=== PATIENT | male | born 1960 | race African-American/Black ===

== ENCOUNTER 2016-11-04 14:18 | Inpatient (IN) | payer OTHER ==
--- NOTE | 2016-11-04 19:23 | HP ---
COWS - Scale Resting Pulse: 0= [place] 80 or Below Sweatin= Chills/Flushing Restless Observation: 3= Extraneous Movement Pupil Size: 0= Normal to Room Light Bone or Joint Aches: 2= Severe Diffuse Aches Runny Nose/ Eye Tearin= Runny Nose/Eyes GI Upset > 30mins: 3= Vomiting/Diarrhea Tremor Observation: 2= Slight Tremor Visible Yawning Observation: 0= None Anxiety or Irritability: 2=Irritable/Anxious Goose Flesh Skin: 0=Smooth Skin COWS Score: 15 Admission ROS S - HPI Chief Complaint: withdrawal sx Allergies/Adverse Reactions: Allergies Allergy/AdvReac Type Severity Reaction Status Date / Time chlordiazepoxide HCl Allergy Severe Vomiting Verified 11/04/16 18:41 [From Librium] History of Present Illness: 56 years old male with long history opiate nicotine dependence has positive ppd denies mental illness is admitted to detox Exam Limitations: No Limitations - Ebola screening Have you traveled outside of the country in the last 21 days: No Have you had contact with anyone from an Ebola affected area: No Have you been sick,other than usual withdrawal symptoms: No Do you have a fever: No - Review of Systems Constitutional: Changes in sleep, Weight Stable EENT: reports: Blurred Vision (eye glasses) Respiratory: reports: No Symptoms reported Cardiac: reports: No Symptoms Reported GI: reports: Nausea, Poor Fluid Intake, Vomiting, Indigestion, Abdominal cramping : reports: No Symptoms Reported Musculoskeletal: reports: Back Pain, Joint Pain, Muscle Pain, Neck Pain Integumentary: reports: No Symptoms Reported Neuro: reports: Tremors Endocrine: reports: No Symptoms Reported Hematology: reports: No Symptoms Reported Psychiatric: reports: Judgement Intact, Mood/Affect Appropiate, Orientated x3 Other Systems: Reviewed and Negative Patient History - Patient Medical History Hx Anemia: No Hx Asthma: No Hx Chronic Obstructive Pulmonary Disease (COPD): No Hx Cancer: No Hx Cardiac Disorders: No Hx Congestive Heart Failure: No Hx Hypertension: No Hx Hypercholesterolemia: No Hx Pacemaker: No HX Cerebrovascular Accident: No Hx Seizures: No Hx Dementia: No Hx Diabetes: Yes Hx Gastrointestinal Disorders: No Hx Liver Disease: No Hx Genitourinary Disorders: No Hx Sexually Transmitted Disorders: No Hx Renal Disease (ESRD): No Hx Thyroid Disease: No Hx Human Immunodeficiency Virus (HIV): No Hx Hepatitis C: No Hx Depression: No Hx Suicide Attempt: No Hx Bipolar Disorder: No Hx Schizophrenia: No - Patient Surgical History Past Surgical History: No Hx Neurologic Surgery: No Hx Cataract Extraction: No Hx Cardiac Surgery: No Hx Lung Surgery: No Hx Breast Surgery: No Hx Breast Biopsy: No Hx Abdominal Surgery: No Hx Appendectomy: No Hx Cholecystectomy: No Hx Genitourinary Surgery: No Hx Orthopedic Surgery: No Anesthesia Reaction: No - PPD History Previous Implant?: Yes Documented Results: Positive w/o proof Implanted On Prior R Admission?: No PPD to be Administered?: No - Smoking Cessation Smoking history: Current every day smoker Have you smoked in the past 12 months: Yes Aproximately how many cigarettes per day: 30 Cigars Per Day: 0 Hx Chewing Tobacco Use: No Initiated information on smoking cessation: Yes 'Breaking Loose' booklet given: 11/04/16 - Substance & Tx. History Hx Alcohol Use: No Hx Substance Use: Yes Substance Use Type: Heroin Hx Substance Use Treatment: Yes (2009) - Substances Abused Heroin Route: Inhalation Frequency: Daily Amount used: 15 bags Age of first use: 28 Date of Last Use: 11/04/16 Family Disease History - Family Disease History Family Disease History: Diabetes: Mother (), Heart Disease: Sister, Other: Father (), Mother, Brother (no brother) Admission Physical Exam S - Vital Signs Vital Signs: Vital Signs - 24 hr 11/04/16 16:47 Temperature 98.3 F Pulse Rate 80 Respiratory 18 Rate Blood Pressure 111/67 - Physical General Appearance: Yes: Appropriately Dressed, Mild Distress, Obese, Tremorous , Irritable, Sweating, Anxious HEENTM: Yes: Hearing grossly Normal, Normal ENT Inspection, Normocephalic, Normal Voice Respiratory: Yes: Chest Non-Tender, Lungs Clear, Normal Breath Sounds, No Respiratory Distress, No Accessory Muscle Use Neck: Yes: Supple, Trachea in good position Breast: Yes: Breasts Symetrical Cardiology: Yes: Regular Rhythm, Regular Rate, S1, S2 Abdominal: Yes: Non Tender, Soft, Increased Bowel Sounds Genitourinary: Yes: Within Normal Limits Back: Yes: Normal Inspection Musculoskeletal: Yes: full range of Motion, Gait Steady, Back pain, Muscle Pain Extremities: Yes: Normal Inspection, Normal Range of Motion, Non-Tender, Tremors Neurological: Yes: Fully Oriented, Alert, Motor Strength 5/5, Normal Mood/Affect , Normal Response Integumentary: Yes: Warm Lymphatic: Yes: Within Normal Limits - Diagnostic (1) GERD (gastroesophageal reflux disease) Current Visit: Yes Status: Chronic Qualifiers: Esophagitis presence: without esophagitis Qualified Code(s): K21.9 - Gastro-esophageal reflux disease without esophagitis (2) Nicotine dependence Current Visit: Yes Status: Acute Qualifiers: Nicotine product type: cigarettes Substance use status: in withdrawal Qualified Code(s): F17.213 - Nicotine dependence, cigarettes, with withdrawal (3) Positive PPD, treated Current Visit: Yes Status: Resolved (4) Opioid dependence with withdrawal Current Visit: Yes Status: Acute Cleared for Admission S - Detox or Rehab [facility] Level of Care: Medically Managed Detox Regimen/Protocol: Methadone [facility] Breath Alcohol Content Breath Alcohol Content: 0 Vital Signs - Height Height: 6 ft 2 in - Weight Weight: 232 lb Weight Measurement Method: Standing Scale Body Mass Index (BMI): 29.7 - Bowel Function Bowel Movement: Yes Urine Drug Screen - Results Drug Screen Negative: No Urine Drug Screen Results: OPI-Opiates
[2016-11-04] MEDS ORDERED: diazePAM 5 MG TABLET PO PRN (19:56)
[2016-11-04] MEDS ORDERED: MAGNESIUM CITRATE 300 ML BOTTLE PO PRN (19:56)
[2016-11-04] MEDS ORDERED: METHADONE HCL 10 MG TABLET (FOR DETOX USE ONLY) PO ONE ×2 (19:56→23:00)
[2016-11-04] MEDS ORDERED: MENTHOL/PHENOL 1 EACH UD MM PRN (19:56)
[2016-11-04] MEDS ORDERED: NICOTINE POLACRILEX 4 MG GUM BUC PRN (19:56)
[2016-11-04] MEDS ORDERED: guaiFENesin/D-METHORPHAN HB 10 ML UNIT-DOSE CUPS PO PRN (19:56)
[2016-11-04] MEDS ORDERED: ACETAMINOPHEN 325 MG TABLET (FP) PO PRN (19:56)
[2016-11-04] MEDS ORDERED: MAG HYDROX/AL HYDROX/SIMETH 30 ML UNIT-DOSE CUP PO PRN (19:56)
[2016-11-04] MEDS ORDERED: diphenhydrAMINE HCL 50 MG CAPSULE PO PRN (19:56)
[2016-11-04] MEDS ORDERED: MAGNESIUM HYDROX 2400MG/30ML ORAL SUSPENSION 30 ML CUP PO PRN (19:56)
[2016-11-04] MEDS ORDERED: LOPERAMIDE HCL 2 MG CAPSULE PO PRN (19:56)
[2016-11-04] MEDS ORDERED: P-EPHED 60MG/TRIPROLIDI 2.5MG TABLET PO PRN (19:56)
[2016-11-04 19:57] VITALS: BMI 29.7
[2016-11-04] MEDS: THIAMINE HCL 100 MG TABLET (FP) PO SCH (21:25)
[2016-11-04] MEDS: RANITIDINE HCL 150 MG TABLET (FP) PO SCH (21:25)
[2016-11-04 21:56] LABS: URINE APPEARANCE CLEAR; URINE BILIRUBIN 1+ (NEGATIVE); URINE BLOOD NEGATIVE (NEGATIVE); URINE COLOR YELLOW; URINE GLUCOSE (UA) NEGATIVE (NEGATIVE); URINE KETONE NEGATIVE (NEGATIVE); URINE LEUK ESTERASE NEGATIVE (NEGATIVE); URINE NITRITE NEGATIVE (NEGATIVE)
[2016-11-04 22:02] LABS: URINE PROTEIN 1+ (NEGATIVE)
[2016-11-04 22:21] LABS: URINE MUCUS MANY; URINE RBC 3 /hpf (0-3); URINE WBC 1 /hpf (3-5)
--- NOTE | 2016-11-05 09:49 | EKG ---
Test Reason : Blood Pressure : / mmHG Vent. Rate : 049 BPM Atrial Rate : 049 BPM P-R Int : 224 ms QRS Dur : 100 ms QT Int : 440 ms P-R-T Axes : 041 053 066 degrees QTc Int : 397 ms SINUS BRADYCARDIA WITH 1ST DEGREE A-V BLOCK OTHERWISE NORMAL ECG Confirmed by MD JANA, GILMER ([id number]) on 11/05/2016 9:48:49 AM Referred By: Confirmed By:GILMER BATES MD
--- NOTE | 2016-11-05 09:49 | EKG ---
Test Reason : Blood Pressure : / mmHG Vent. Rate : 049 BPM Atrial Rate : 049 BPM P-R Int : 190 ms QRS Dur : 102 ms QT Int : 410 ms P-R-T Axes : 049 062 071 degrees QTc Int : 370 ms SINUS BRADYCARDIA NONSPECIFIC T WAVE ABNORMALITY ABNORMAL ECG NO PREVIOUS ECGS AVAILABLE Confirmed by MD JANA, GILMER ([id number]) on 11/05/2016 9:49:14 AM Referred By: Confirmed By:GILMER BATES MD
[2016-11-05] MEDS ORDERED: METHADONE HCL 10 MG TABLET (FOR DETOX USE ONLY) PO ONE (10:00)
[2016-11-05 10:25] LABS: MCH 30.5 pg (25.7-33.7); MCHC 33.6 g/dl (32.0-35.9); MEAN CELL VOLUME 90.7 fl (80-96); MEAN PLT VOLUME 11.6 fl (7.5-11.1); PLATELET COUNT 133 K/MM3 (134-434); RDW 13.2 % (11.9-15.9); WHITE BLOOD COUNT 6.1 K/mm3 (4.0-10.0)
[2016-11-05] MEDS: PRENATAL VITAMINS W/ FOLIC ACID TABLET (FP) PO SCH (10:43)
[2016-11-05] MEDS: RANITIDINE HCL 150 MG TABLET (FP) PO SCH ×2 (10:43→22:34)
[2016-11-05] MEDS: NICOTINE 21 MG/24 HOURS TOPICAL PATCH TD SCH (10:45)
[2016-11-05 11:22] LABS: ALBUMIN 3.4 g/dl (3.4-5.0); ANION GAP 6 (8-16); CALCIUM 8.9 mg/dL (8.5-10.1); CO2 28 mmol/L (21-32); GLUCOSE,RANDOM 100 mg/dL (74-106)
[2016-11-05 11:29] LABS: ALK PHOS 73 U/L (45-117); BILIRUBIN,TOTAL 0.5 mg/dL (0.2-1.0); CREATININE 0.8 mg/dL (0.7-1.3); SGOT/AST 11 U/L (15-37); SGPT/ALT 18 U/L (12-78)
--- NOTE | 2016-11-05 13:53 | PN ---
S CIWA - CIWA Score Nausea/Vomitin Muscle Tremors: 2 Anxiety: 4-Mod. Anxious/Guarded Agitation: 3 Paroxysmal Sweats: 3 Orientation: 0-Oriented Tacttile Disturbances: 2-Mild Itch/Numbness/Burn Auditory Disturbances: 0-None Visual Disturbances: 2-Mild Sensitivity Headache: 0-None Present CIWA-Ar Total Score: 19 S Progress Note (SOAP) Subjective: Stomach Cramping, Sweating, Anxious. Objective: PT. A & O X 3, OBSERVED AMBULATING ON UNIT. NO ACUTE DISTRESS. PT. DENIES CHEST PAIN. 11/05/16 13:51 Vital Signs Temperature 96.8 F L 11/05/16 09:41 Pulse Rate 98 H 11/05/16 09:41 Respiratory Rate 18 11/05/16 09:41 Blood Pressure 142/76 11/05/16 09:41 O2 Sat by Pulse Oximetry (%) Laboratory Tests 11/04/16 11/04/16 11/05/16 19:02 21:46 08:00 WBC 6.1 RBC 4.28 Hgb 13.0 Hct 38.8 MCV 90.7 MCH 30.5 MCHC 33.6 RDW 13.2 Plt Count 133 L MPV 11.6 H Sodium Potassium Chloride Carbon Dioxide Anion Gap BUN Creatinine Creat Clearance w eGFR POC Glucometer 92 Random Glucose Calcium Total Bilirubin AST ALT Alkaline Phosphatase Total Protein Albumin Urine Color Yellow Urine Appearance Clear Urine pH 6.0 Ur Specific [place] >= 1.030 H Urine Protein 1+ H Urine Glucose (UA) Negative Urine Ketones Negative Urine Blood Negative Urine Nitrite Negative Urine Bilirubin 1+ H Urine Urobilinogen 1.0 Urine RBC 3 Urine WBC 1 Ur Epithelial Cells Moderate Urine Mucus Many RPR Titer 11/05/16 11/05/16 08:00 08:00 WBC RBC Hgb Hct MCV MCH MCHC RDW Plt Count MPV Sodium 141 Potassium 4.1 Chloride 107 Carbon Dioxide 28 Anion Gap 6 L BUN 11 Creatinine 0.8 Creat Clearance w eGFR > 60 POC Glucometer Random Glucose 100 Calcium 8.9 Total Bilirubin 0.5 AST 11 L ALT 18 Alkaline Phosphatase 73 Total Protein 6.0 L Albumin 3.4 Urine Color Urine Appearance Urine pH Ur Specific [place] Urine Protein Urine Glucose (UA) Urine Ketones Urine Blood Urine Nitrite Urine Bilirubin Urine Urobilinogen Urine RBC Urine WBC Ur Epithelial Cells Urine Mucus RPR Titer Nonreactive LABS NOTED. Assessment: 11/05/16 13:52 WITHDRAWAL SYMPTOMS. Plan: CONTINUE DETOX. REPEAT UA FOR ADMISSION UA ABNORMALITIES. INCREASE DAILY PO FLUID INTAKE.
[2016-11-05] MEDS: THIAMINE HCL 100 MG TABLET (FP) PO SCH (22:34)
[2016-11-06] MEDS ORDERED: METHADONE HCL 5 MG TABLET (FOR DETOX USE ONLY) PO ONE (10:00)
[2016-11-06] MEDS: PRENATAL VITAMINS W/ FOLIC ACID TABLET (FP) PO SCH (10:06)
[2016-11-06] MEDS: RANITIDINE HCL 150 MG TABLET (FP) PO SCH ×2 (10:06→22:39)
[2016-11-06] MEDS: NICOTINE 21 MG/24 HOURS TOPICAL PATCH TD SCH (10:07)
--- NOTE | 2016-11-06 13:22 | PN ---
S COWS - Scale Resting Pulse: 1= [place] 81-100 Sweatin=Flushed/Facial Moisture Restless Observation: 3= Extraneous Movement Pupil Size: 1= Pupils >than Normal Bone or Joint Aches: 2= Severe Diffuse Aches Runny Nose/ Eye Tearin= Runny Nose/Eyes GI Upset > 30mins: 3= Vomiting/Diarrhea Tremor Observation of Outstretched Hands: 2= Slight Tremor Visible Yawning Observation: 0= None Anxiety or Irritability: 2=Irritable/Anxious Goose Flesh Skin: 0=Smooth Skin COWS Score: 18 S Progress Note (SOAP) Subjective: Nausea, chills, sweating, vomited x 1 Objective: 11/06/16 13:18 Last Vital Signs Temp Pulse Resp BP Pulse Ox 97.9 F 87 18 130/64 11/06/16 10:40 11/06/16 10:40 11/06/16 10:40 11/06/16 10:40 Laboratory Tests 11/04/16 11/04/16 11/05/16 19:02 21:46 08:00 WBC 6.1 RBC 4.28 Hgb 13.0 Hct 38.8 MCV 90.7 MCH 30.5 MCHC 33.6 RDW 13.2 Plt Count 133 L MPV 11.6 H Sodium Potassium Chloride Carbon Dioxide Anion Gap BUN Creatinine Creat Clearance w eGFR POC Glucometer 92 Random Glucose Calcium Total Bilirubin AST ALT Alkaline Phosphatase Total Protein Albumin Urine Color Yellow Urine Appearance Clear Urine pH 6.0 Ur Specific [place] >= 1.030 H Urine Protein 1+ H Urine Glucose (UA) Negative Urine Ketones Negative Urine Blood Negative Urine Nitrite Negative Urine Bilirubin 1+ H Urine Urobilinogen 1.0 Urine RBC 3 Urine WBC 1 Ur Epithelial Cells Moderate Urine Mucus Many RPR Titer 11/05/16 11/05/16 08:00 08:00 WBC RBC Hgb Hct MCV MCH MCHC RDW Plt Count MPV Sodium 141 Potassium 4.1 Chloride 107 Carbon Dioxide 28 Anion Gap 6 L BUN 11 Creatinine 0.8 Creat Clearance w eGFR > 60 POC Glucometer Random Glucose 100 Calcium 8.9 Total Bilirubin 0.5 AST 11 L ALT 18 Alkaline Phosphatase 73 Total Protein 6.0 L Albumin 3.4 Urine Color Urine Appearance Urine pH Ur Specific [place] Urine Protein Urine Glucose (UA) Urine Ketones Urine Blood Urine Nitrite Urine Bilirubin Urine Urobilinogen Urine RBC Urine WBC Ur Epithelial Cells Urine Mucus RPR Titer Nonreactive Labs noted: UA abnormal Assessment: 11/06/16 13:20 Withdrawal symptoms Noted with abnormal UA Plan: Continue detox Abnormal UA: encouraged to drink lots of water, repeat UA
[2016-11-06] MEDS: THIAMINE HCL 100 MG TABLET (FP) PO SCH (22:39)
--- NOTE | 2016-11-07 09:35 | PN ---
[facility] Progress Note (SOAP) Subjective: Sweating, interrupted sleep, restless Objective: 11/07/16 09:33 Vital Signs 11/07/16 11/07/16 11/07/16 03:21 06:08 06:09 Temperature 96.2 F L Pulse Rate 89 Respiratory 18 18 18 Rate Blood Pressure 122/71 11/07/16 09:03 Temperature 98.1 F Pulse Rate 63 Respiratory 18 Rate Blood Pressure 114/73 Laboratory Last Values WBC 6.1 K/mm3 (4.0-10.0) 11/05/16 08:00 RBC 4.28 M/mm3 (4.00-5.60) 11/05/16 08:00 Hgb 13.0 GM/dL (11.7-16.9) 11/05/16 08:00 Hct 38.8 % (35.4-49) 11/05/16 08:00 MCV 90.7 fl (80-96) 11/05/16 08:00 MCH 30.5 pg (25.7-33.7) 11/05/16 08:00 MCHC 33.6 g/dl (32.0-35.9) 11/05/16 08:00 RDW 13.2 % (11.9-15.9) 11/05/16 08:00 Plt Count 133 K/MM3 (134-434) L 11/05/16 08:00 MPV 11.6 fl (7.5-11.1) H 11/05/16 08:00 Sodium 141 mmol/L (136-145) 11/05/16 08:00 Potassium 4.1 mmol/L (3.5-5.1) 11/05/16 08:00 Chloride 107 mmol/L (98-107) 11/05/16 08:00 Carbon Dioxide 28 mmol/L (21-32) 11/05/16 08:00 Anion Gap 6 (8-16) L 11/05/16 08:00 BUN 11 mg/dL (7-18) 11/05/16 08:00 Creatinine 0.8 mg/dL (0.7-1.3) 11/05/16 08:00 Creat Clearance w eGFR > 60 (>60) 11/05/16 08:00 POC Glucometer 92 UNITS (()) 11/04/16 19:02 Random Glucose 100 mg/dL (74-106) 11/05/16 08:00 Calcium 8.9 mg/dL (8.5-10.1) 11/05/16 08:00 Total Bilirubin 0.5 mg/dL (0.2-1.0) 11/05/16 08:00 AST 11 U/L (15-37) L 11/05/16 08:00 ALT 18 U/L (12-78) 11/05/16 08:00 Alkaline Phosphatase 73 U/L (45-117) 11/05/16 08:00 Total Protein 6.0 g/dl (6.4-8.2) L 11/05/16 08:00 Albumin 3.4 g/dl (3.4-5.0) 11/05/16 08:00 Urine Color Yellow 11/04/16 21:46 Urine Appearance Clear 11/04/16 21:46 Urine pH 6.0 (5.0-8.0) 11/04/16 21:46 Ur Specific [place] >= 1.030 (1.005-1.025) H 11/04/16 21:46 Urine Protein 1+ (NEGATIVE) H 11/04/16 21:46 Urine Glucose (UA) Negative (NEGATIVE) 11/04/16 21:46 Urine Ketones Negative (NEGATIVE) 11/04/16 21:46 Urine Blood Negative (NEGATIVE) 11/04/16 21:46 Urine Nitrite Negative (NEGATIVE) 11/04/16 21:46 Urine Bilirubin 1+ (NEGATIVE) H 11/04/16 21:46 Urine Urobilinogen 1.0 mg/dL (0.2-1.0) 11/04/16 21:46 Urine RBC 3 /hpf (0-3) 11/04/16 21:46 Urine WBC 1 /hpf (3-5) 11/04/16 21:46 Ur Epithelial Cells Moderate /hpf (FEW) 11/04/16 21:46 Urine Mucus Many 11/04/16 21:46 RPR Titer Nonreactive (NONREACTIVE) 11/05/16 08:00 Labs noted Assessment: 11/07/16 09:34 Withdrawal sx Plan: Continue Detox
[2016-11-07] MEDS ORDERED: METHADONE HCL 5 MG TABLET (FOR DETOX USE ONLY) PO ONE (10:00)
[2016-11-07] MEDS ORDERED: METHADONE HCL 10 MG TABLET (FOR DETOX USE ONLY) PO ONE (10:00)
[2016-11-07] MEDS: PRENATAL VITAMINS W/ FOLIC ACID TABLET (FP) PO SCH (10:10)
[2016-11-07] MEDS: RANITIDINE HCL 150 MG TABLET (FP) PO SCH ×2 (10:10→22:28)
[2016-11-07] MEDS: NICOTINE 21 MG/24 HOURS TOPICAL PATCH TD SCH (10:10)
[2016-11-07 17:50] LABS: URINE APPEARANCE SLCLOUDY; URINE BILIRUBIN NEGATIVE (NEGATIVE); URINE BLOOD NEGATIVE (NEGATIVE); URINE COLOR AMBER; URINE GLUCOSE (UA) NEGATIVE (NEGATIVE); URINE KETONE NEGATIVE (NEGATIVE); URINE LEUK ESTERASE TRACE (NEGATIVE); URINE NITRITE NEGATIVE (NEGATIVE)
[2016-11-07 18:02] LABS: URINE PROTEIN 1+ (NEGATIVE)
[2016-11-07 18:03] LABS: URINE MUCUS MANY; URINE RBC 8 /hpf (0-3); URINE WBC 1 /hpf (3-5)
[2016-11-07] MEDS: THIAMINE HCL 100 MG TABLET (FP) PO SCH (22:28)
[2016-11-08] MEDS ORDERED: METHADONE HCL 5 MG TABLET (FOR DETOX USE ONLY) PO ONE (06:00)
[2016-11-08 09:20] VITALS: BP 115/75; PULSE 80; TEMP 96.9
[2016-11-08] MEDS ORDERED: METHADONE HCL 10 MG TABLET (FOR DETOX USE ONLY) PO ONE (10:00)
[2016-11-08] MEDS: RANITIDINE HCL 150 MG TABLET (FP) PO SCH (11:21)
[2016-11-08] MEDS: NICOTINE 21 MG/24 HOURS TOPICAL PATCH TD SCH (11:21)
[2016-11-08] MEDS: PRENATAL VITAMINS W/ FOLIC ACID TABLET (FP) PO SCH (11:21)
--- NOTE | 2016-11-08 11:57 | DS ---
[facility] Detox Discharge Summary Admission Date: 11/04/16 Discharge Date: 11/08/16 - History Present History: Opioid Dependence Additional Comments: PT. GOING TO [facility] FOR AFTERCARE. PATIENT WAS DISCHARGED FROM DETOX UNIT IN STABLE MEDICAL CONDITION. Pertinent Past History: DM, History of Positive PPD (treated), Nicotine Dependence, GERD. - Physical Exam Results Vital Signs: Vital Signs Temperature 96.9 F L 11/08/16 09:20 Pulse Rate 80 11/08/16 09:20 Respiratory Rate 18 11/08/16 09:20 Blood Pressure 115/75 11/08/16 09:20 O2 Sat by Pulse Oximetry (%) Pertinent Admission Physical Exam Findings: WITHDRAWAL SYMPTOMS. Laboratory Tests 11/04/16 11/04/16 11/05/16 19:02 21:46 08:00 WBC 6.1 RBC 4.28 Hgb 13.0 Hct 38.8 MCV 90.7 MCH 30.5 MCHC 33.6 RDW 13.2 Plt Count 133 L MPV 11.6 H Sodium Potassium Chloride Carbon Dioxide Anion Gap BUN Creatinine Creat Clearance w eGFR POC Glucometer 92 Random Glucose Calcium Total Bilirubin AST ALT Alkaline Phosphatase Total Protein Albumin Urine Color Yellow Urine Appearance Clear Urine pH 6.0 Ur Specific [place] >= 1.030 H Urine Protein 1+ H Urine Glucose (UA) Negative Urine Ketones Negative Urine Blood Negative Urine Nitrite Negative Urine Bilirubin 1+ H Urine Urobilinogen 1.0 Urine RBC 3 Urine WBC 1 Ur Epithelial Cells Moderate Urine Mucus Many RPR Titer 11/05/16 11/05/16 11/07/16 08:00 08:00 17:15 WBC RBC Hgb Hct MCV MCH MCHC RDW Plt Count MPV Sodium 141 Potassium 4.1 Chloride 107 Carbon Dioxide 28 Anion Gap 6 L BUN 11 Creatinine 0.8 Creat Clearance w eGFR > 60 POC Glucometer Random Glucose 100 Calcium 8.9 Total Bilirubin 0.5 AST 11 L ALT 18 Alkaline Phosphatase 73 Total Protein 6.0 L Albumin 3.4 Urine Color [place] Urine Appearance Slcloudy Urine pH 5.0 Ur Specific [place] >= 1.030 H Urine Protein 1+ H Urine Glucose (UA) Negative Urine Ketones Negative Urine Blood Negative Urine Nitrite Negative Urine Bilirubin Negative Urine Urobilinogen 2.0 Urine RBC 8 Urine WBC 1 Ur Epithelial Cells Few Urine Mucus Many RPR Titer Nonreactive LABS NOTED. - Treatment Hospital Course: Detox Protocol Followed, Detoxed Safely, Responded well, Discharged Condition Good, Rehab Referral Accepted Patient has Accepted a Rehab Referral to: [facility]. - Medication Discharge Medications: Ambulatory Orders NK [No Known Home Medication] 11/04/16 - Diagnosis (1) Nicotine dependence Current Visit: Yes Status: Chronic Qualifiers: Nicotine product type: cigarettes Substance use status: in withdrawal Qualified Code(s): F17.213 - Nicotine dependence, cigarettes, with withdrawal (2) Opioid dependence with withdrawal Current Visit: Yes Status: Acute (3) GERD (gastroesophageal reflux disease) Current Visit: Yes Status: Chronic Qualifiers: Esophagitis presence: without esophagitis Qualified Code(s): K21.9 - Gastro-esophageal reflux disease without esophagitis (4) Positive PPD, treated Current Visit: Yes Status: Resolved - AMA Did Patient Leave Against Medical Advice: No
[2016-11-09] MEDS ORDERED: METHADONE HCL 5 MG TABLET (FOR DETOX USE ONLY) PO ONE (06:00)
== END 2016-11-08 12:29 | disposition home or self-care (01) | DRG 773 ==
LOC: YASAS 14:18 → Y3N 19:14
PROVIDERS: ADMIT Internal Medicine; ATTEND Internal Medicine
PROC: HZ2ZZZZ Detoxification Services for Substance Abuse Treatment (ICD-10-PCS; principal; 2016-11-05)
DX: F11.23 Opioid dependence with withdrawal (principal); F17.210 Nicotine dependence, cigarettes, uncomplicated; K21.9 Gastro-esophageal reflux disease without esophagitis; R76.11 Nonspecific reaction to tuberculin skin test without active tuberculosis; R82.90 Unspecified abnormal findings in urine; Z88.8 Allergy status to other drugs, medicaments and biological substances; E66.9 Obesity, unspecified; Z68.29 Body mass index [BMI] 29.0-29.9, adult
CPT/HCPCS: 36415; 71020-TC; 80053; 81003; 81015; 85027; 86593; 93005; 93010